=== PATIENT | female | born 1975 | race Two or more races ===

== ENCOUNTER 2018-10-24 10:08 | Outpatient (CLI) | payer OTHER | END 2018-10-24 10:20 | disposition home or self-care (01) | LOC: SONOGRAMA 10:08 | DX: E03.8 Other specified hypothyroidism (principal) ==

== ENCOUNTER 2018-10-24 12:37 | Outpatient (CLI) | payer OTHER | END 2018-10-24 14:03 | disposition home or self-care (01) | LOC: MRI 12:37 | DX: R90.0 Intracranial space-occupying lesion found on diagnostic imaging of central nervous system (principal); I67.1 Cerebral aneurysm, nonruptured | CPT/HCPCS: 70544; 70551 ==

== ENCOUNTER 2018-12-05 18:22 | Outpatient (CLI) | payer OTHER | END 2018-12-05 19:02 | disposition home or self-care (01) | LOC: LAB 18:22 | DX: E06.3 Autoimmune thyroiditis (principal); D50.8 Other iron deficiency anemias; D51.8 Other vitamin B12 deficiency anemias; E03.8 Other specified hypothyroidism; D72.818 Other decreased white blood cell count ==